=== PATIENT | female | born 1985 | race Hispanic/Latino ===

== ENCOUNTER 2024-11-21 12:57 | Inpatient (IN) | payer OTHER, SELFPAY ==
[~2024-11-21 12:57] MED LIST: Bupivacaine 0.25% HCL 30 ML VIAL ONE; Bupivacaine HCl 0.5%/Epinephrine 1:200,000/PF 30 ml Vial ONE
[2024-11-21 13:16] VITALS: BMI 32.2
[2024-11-21] MEDS ORDERED: hydrALAZINE 20 MG/ML VIAL SLOW IVP PRN ×2 (13:26→20:36)
[2024-11-21] MEDS ORDERED: Carboprost 250 MCG/ML AMP IM PRN (13:26)
[2024-11-21] MEDS ORDERED: Lidocaine 1% (PF) 30 ML VIAL SC PRN (13:26)
[2024-11-21] MEDS ORDERED: Methylergonovine 0.2 MG/ML VIAL IM PRN (13:26)
[2024-11-21] MEDS ORDERED: Diphenoxylate HCl/Atropine Tablet PO PRN ×2 (13:26)
[2024-11-21] MEDS ORDERED: Acetaminophen 500 MG TAB PO PRN (13:26)
[2024-11-21] MEDS ORDERED: Ibuprofen 800 MG TAB PO PRN (13:26)
[2024-11-21] MEDS ORDERED: Tranexamic Acid 1,000 MG/10 ML VIAL IVP PRN (13:26)
[2024-11-21] MEDS ORDERED: Oxytocin 30 units/NS 500 ML 500 ML IV SCH ×2 (13:30)
[2024-11-21 13:36] LABS: Fetal Membranes Rupture RUPTURE DETECTED (No Rupture)
[2024-11-21 14:20] LABS: Hematocrit 37.7 % (34.9-44.5); Hemoglobin 12.9 g/dL (12.0-15.5); Mean Corpuscular Hemoglobin 31.3 pg (27.0-33.0); Mean Corpuscular Volume 91.5 fL (81.6-98.3); Platelet Count 305 10x3/uL (150-450); Red Blood Cell (RBC) Count 4.12 10x6/uL (3.90-5.03); White Blood Cell (WBC) Count 11.97 10x3/uL (3.5-10.5)
[2024-11-21 15:03] LABS: Hep B Surf Ag - L&D Non-Reactive S/CO (NonReactive)
[2024-11-21 15:04] LABS: Syphilis Antibody Index 0.04 S/CO (<1.00 Non-Reactive)
[2024-11-21] MEDS: fentaNYL/Ropivacaine Epidural 100 ML ONE (18:04)
[2024-11-21] MEDS ORDERED: diphenhydrAMINE 50 MG/ML VIAL IVP PRN ×2 (18:10→20:16)
[2024-11-21] MEDS ORDERED: Ondansetron PF 4 MG/2 ML Vial IVP PRN ×3 (18:10→20:16)
[2024-11-21] MEDS ORDERED: Communication Order-Pharmacy FS SCH ×2 (18:15→20:30)
[2024-11-21] MEDS ORDERED: fentaNYL 2 mcg/Ropivacaine 0.2% Epidural 100 ML CADD EPIDURAL SCH (18:15)
[2024-11-21] MEDS ORDERED: CEFAZOLIN 2 GM VIAL ONE (19:27)
[2024-11-21] MEDS ORDERED: Azithromycin 500 MG VIAL ONE (19:27)
[2024-11-21] MEDS ORDERED: Bicitra 30 ML UDCUP PO PRN (19:44)
[2024-11-21] MEDS ORDERED: Famotidine/PF 20 mg/2ml Vial SLOW IVP PRN (19:44)
[2024-11-21] MEDS ORDERED: Azithromycin 500 MG in Sodium Chloride 0.9% 250 ML 250 ML IVPB SCH (19:45)
[2024-11-21] MEDS ORDERED: Meperidine HCl/PF 25 MG (1 mL) VIAL SLOW IVP PRN (20:16)
[2024-11-21] MEDS ORDERED: Ondansetron PF 4 MG/2 ML Vial ONE (20:28)
[2024-11-21] MEDS ORDERED: Oxytocin 10 UNITS/ML VIAL ONE (20:28)
[2024-11-21 20:29] LABS: Analyzer IN Cardio CS NICU; Critical Notified By: CP.LH1; Critical Notified Whom: nur.abz; RapidComm Collect By CBN
[2024-11-21] MEDS ORDERED: Ketorolac Tromethamine 30 MG (1 mL) VIAL IVP SCH (20:30)
[2024-11-21 20:31] LABS: Analyzer IN Cardio CS NICU; Critical Notified By: CP.LH1; Critical Notified Whom: NUR.ABZ; RapidComm Collect By CBN; pH (Cord, venous) 7.356 (7.250-7.350)
[2024-11-21] MEDS ORDERED: Lanolin Ointment 7 GM TUBE TOP PRN (20:36)
[2024-11-21] MEDS ORDERED: Boostrix 0.5 ML (Tdap) VIAL (>/=7 yrs of age) IM ONE (20:36)
[2024-11-21] MEDS ORDERED: Acetaminophen 325 MG TAB PO PRN (20:36)
[2024-11-21] MEDS: Ferrous Sulfate 325 MG TAB PO SCH (22:30)
[2024-11-22] MEDS: Ondansetron PF 4 MG/2 ML Vial IVP PRN (02:48)
[2024-11-22 05:14] LABS: Hematocrit 36.6 % (34.9-44.5); Hemoglobin 12.2 g/dL (12.0-15.5); Mean Corpuscular Hemoglobin 31.0 pg (27.0-33.0); Mean Corpuscular Volume 92.9 fL (81.6-98.3); Platelet Count 257 10x3/uL (150-450); Red Blood Cell (RBC) Count 3.94 10x6/uL (3.90-5.03); White Blood Cell (WBC) Count 17.41 10x3/uL (3.5-10.5)
[2024-11-22] MEDS: Ketorolac Tromethamine 30 MG (1 mL) VIAL IVP PRN (12:20)
[2024-11-22] MEDS: Acetaminophen 325 MG TAB PO PRN (14:49)
[2024-11-22] MEDS: Simethicone Chewable 80 MG TAB PO PRN (14:49)
[2024-11-22] MEDS ORDERED: HYDROcodone/Acetaminophen 5/325 mg Tablet PO PRN (18:00)
[2024-11-23] MEDS: Ibuprofen 800 MG TAB PO PRN (14:00)
[2024-11-23 16:19] VITALS: BP 109/69; TEMP 98.6
== END 2024-11-23 16:30 | disposition home or self-care (01) | DRG 788 ==
LOC: CSHLD/OP 12:57 → CSHLD 14:57 → CSHPP 21:50
PROVIDERS: ADMIT Family Medicine; ATTEND Family Medicine
PROC: 10D00Z1 Extraction of Products of Conception, Low, Open Approach (ICD-10-PCS; principal; 2024-11-21)
PROC: 3E03329 Introduction of Other Anti-infective into Peripheral Vein, Percutaneous Approach (ICD-10-PCS; 2024-11-21)
DX: O42.02 Full-term premature rupture of membranes, onset of labor within 24 hours of rupture (principal); O76 Abnormality in fetal heart rate and rhythm complicating labor and delivery; O69.81X0 Labor and delivery complicated by cord around neck, without compression, not applicable or unspecified; O77.0 Labor and delivery complicated by meconium in amniotic fluid; Z79.82 Long term (current) use of aspirin; Z37.0 Single live birth; Z3A.40 40 weeks gestation of pregnancy; Z79.899 Other long term (current) drug therapy
CPT/HCPCS: 36415; 51702; 82805; 84112; 85027; 86780; 86850; 86900; 86901; 87340; 88307; 99285; J0665; J1885; J2274; J2405; J2590; J3010